=== PATIENT | female | born 1945 | race Caucasian/White ===

== ENCOUNTER 2018-01-20 18:35 | Emergency (ER) | payer OTHER, BC ==
--- NOTE | 2018-01-20 20:10 | EDPHY ---
H & P Stated Complaint: TRIPPED/FELL INJ L WRIST Time Seen by Provider: 01/20/18 20:07 HPI/ROS: HPI: This is a 72-year-old female who presents with Chief Complaint: TRIPPED/FELL INJ L WRIST Location: Left wrist Quality: Injury Duration: Prior to arrival Signs and Symptoms: No bleeding, no radiation, no numbness, no weakness, no tingling, no incontinence, no decreased range of motion, no swelling, + pain, no fever Timing: Acute Severity: Mild Context: Patient is right-hand dominant, presents with accidentally tripping over road sign during the parade and falling on outstretched hand on her left side. She reports that she feels pain at the base of her thumb. She fractured her radius last year and had and ORIF performed in [facility]. Denies LOC/ head injury/neck pain/dizziness/nausea/vomiting/amnesia. She reports only mild pain with palpating the area but no decreased range of motion, weakness, paresthesia. Modifying Factors: None Comment: ROS: A comprehensive 10 system review of systems is otherwise negative aside from elements mentioned in the history of present illness. MEDICAL/SURGICAL/SOCIAL HISTORY: Medical history: Insulin-dependent diabetes mellitus Surgical history: Left wrist ORIF Social history: Retired. Nonsmoker. CONSTITUTIONAL: Pleasant and cooperative elderly white female, awake and alert , no obvious distress HEENT: Superficial abrasion approximately the size of a nickel noted on chin- no active bleeding and normocephalic. NECK: supple, no midline tenderness, flexion 45 degrees, extension 45 degrees, right and left lateral flexion 45 degrees. No meningismus. Cardiovascular: Normal S1/S2, regular rate, regular rhythm, without murmur rub or gallop. PULMONARY/CHEST: Symmetrical and nontender. no crepitus. Clear to auscultation bilaterally. Good air movement. No accessory muscle usage. EXTREMITIES: 2/2 pulses, strength 5/5, left wrist shows well-healed incision. Mild tenderness at the base of the thumb. Left WRIST: Extension to 70, flexion to 80, radial deviation to 20 degree, ulnar deviation to 30, no scaphoid tenderness, no tenderness over ulnar styloid, no tenderness over radial styloid. DIP/PIP/MCP flexion/extension intact with good light touch sensation. no deformities, no clubbing, no cyanosis or edema. NEUROLOGICAL: no focal neuro deficits. GCS 15. Light touch sensation intact. SKIN: Warm and dry, no erythema. no rash. Good capillary refill. Source: Patient Exam Limitations: No limitations - Personal History Current Tetanus Diphtheria and Acellular Pertussis (TDAP): Yes - Medical/Surgical History Hx Asthma: No Hx Chronic Respiratory Disease: No Hx Diabetes: Yes Hx Cardiac Disease: No Hx Renal Disease: No Hx Cirrhosis: No Hx Alcoholism: No Hx HIV/AIDS: No Hx Splenectomy or Spleen Trauma: No Other PMH: DIABETIC L WRIST FX - Social History Smoking Status: Never smoked Constitutional: Initial Vital Signs Temperature (C) 36.3 C 01/20/18 18:42 Heart Rate 73 01/20/18 18:42 Respiratory Rate 18 01/20/18 18:42 Blood Pressure 159/68 H 01/20/18 18:42 O2 Sat (%) 97 01/20/18 18:42 O2 Delivery Mode Room Air Allergies/Adverse Reactions: Penicillins Allergy (Verified 01/20/18 18:41) shellfish derived [shrimp] Allergy (Verified 01/20/18 18:42) Home Medications: Medication Instructions Recorded novoLOG 01/20/18 Medical Decision Making - Diagnostics Imaging Results: Imaging Impressions Wrist X-Ray 01/20/18 18:46 Impression: 1. Suspect nondisplaced navicular fracture. 2. Laxity versus age indeterminate tear of the scapholunate ligament. Procedures: Procedure: Splint placement. A left thumb spica Ortho Glass splint and sling were applied by the Emergency Room mathematical technician. After application of the splint I returned and re-examined the patient. The splint was adequately immobilizing the joint and distal to the splint the patient's circulation and sensation was intact. ED Course/Re-evaluation: Left wrist x-ray my read shows hardware in place in the distal radius; nondisplaced navicular fracture noted Placed in thumb spica splint and sling with Ortho Hand follow-up No signs of neurovascular compromise/tenting of skin/compartment syndrome/ extremities and joints examined above and below area of concern and are neurovascularly intact. Fall was mechanical in nature. This patient was seen under the supervision of my secondary supervising physician. I evaluated care for this patient independently. Discussed this patient with Dr. Galeas who did not see the patient. Differential Diagnosis: Differential diagnosis includes but is not limited to radial fracture, ulnar fracture, wrist sprain, scapholunate ligament tear, mid hand fracture. Departure - Departure Disposition: Home, Routine, Self-Care Clinical Impression: Fracture of navicular bone, hand, right, closed Qualifiers: Encounter type: sequela Scaphoid bone location: unspecified portion of scaphoid Fracture alignment: nondisplaced Qualified Code(s): S62.001S - Unspecified fracture of navicular [scaphoid] bone of right wrist, sequela Sprain of left wrist Qualifiers: Encounter type: initial encounter Qualified Code(s): S63.502A - Unspecified sprain of left wrist, initial encounter Strain of left pectoralis muscle Qualifiers: Encounter type: initial encounter Qualified Code(s): S29.011A - Strain of muscle and tendon of front wall of thorax, initial encounter Condition: Good Instructions: Hand Fracture (ED), Wrist Sprain (ED) Additional Instructions: Keep the splint dry and in place until seen by Orthopedics. Take Tylenol 650 mg every 4 hours and/or Ibuprofen 600 mg every 8 hours with food as needed for pain. Apply ice for 30 minutes at a time; 2-3 times per day for the next 1-2 days. Follow up with Orthopedics in 7-10 days at which time they will evaluate and recommend with you if conservative management versus surgery is indicated. Referrals: Munir Solis MD [Medical Doctor] - As per Instructions
[2018-01-20 20:40] VITALS: BP 126/62
== END 2018-01-20 20:39 | disposition home or self-care (01) ==
PROC: 2W3DX1Z Immobilization of Left Lower Arm using Splint (ICD-10-PCS; principal; 2018-01-20)
DX: S63.502A Unspecified sprain of left wrist, initial encounter (principal); S00.81XA Abrasion of other part of head, initial encounter; S29.011A Strain of muscle and tendon of front wall of thorax, initial encounter; S62.002S Unspecified fracture of navicular [scaphoid] bone of left wrist, sequela; E11.9 Type 2 diabetes mellitus without complications; W01.0XXA Fall on same level from slipping, tripping and stumbling without subsequent striking against object, initial encounter; Y92.9 Unspecified place or not applicable; Y93.89 Activity, other specified
CPT/HCPCS: 29125; 73110; 99283; A4565